=== PATIENT | male | born 1975 | race Caucasian/White ===

== ENCOUNTER 2018-07-20 13:39 | Emergency (ER) | payer BC ==
--- OUTSIDE RECORDS SUMMARY | 2018-07-20 13:44 | XMS REPORT ---
:1975 External Reference #:[id number] Author Organization [facility] Address [address] [place] [address] Phone [phone] Care Team Providers Name Role Phone Sara Davis M.D. 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 Primary Care Physician Unavailable Payers Type Date Identification Numbers Payment Provider Subscriber Health Maintenance Policy Number: Essential Plan Champ Dobson [facility] (O) [id number] [employer] Name: Essential Plan 2 [address] [address] PayID: [id number] CLINT Olivo [address] Problems Date Description Provider Status Onset: 07/02/2018 Obesity Sara Davis M.D. Active Family History Date Family Member(s) Problem(s) Comments Father Skin Cancer not melanoma - sun related on ears Father 80 Father Colon Polyps precancerous polyps at 65 Father Congestive Heart Failure (CHF) Father Atrial Fibrillation Father Benign Prostatic Hypertrophy : (age 74 Mother due to Cancer unknown metastatic, Years) possible lung Children 3 First Brother No Current Problems Social History Type Date Description Comments Marital Status . 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 Cigarette Use Former Cigarette Smoker age [age] - 2 packs a day ETOH Use Consumes 2 glasses of wine per cocktail and wine day Smoking Patient is a former smoker Exercise Type/Frequency Exercises sporadically work related General Hx Text [employer] Allergies, Adverse Reactions, Alerts Date Description Reaction Status Severity Comments 06/03/2013 Glucosamine Hives active Medications Medication Date Status Form Strength Qnty SIG Indications Ordering Provider No Active 06/03/2013 Active Unknown Medications Immunizations CPT Code Status Date Vaccine Lot # [id number] Given 09/27/2015 Tdap Tetanus, W Pertussis [id number] Given 06/09/2014 DO Not Use Split Influenza Virus Vaccine [id number] Given 06/03/2013 DO Not Use Split Influenza Virus Vaccine [id number] Vital Signs Date Vital Result Comment 07/02/2018 BP Systolic 128 mmHg BP Diastolic 86 mmHg Heart Rate 66 /min Body Temperature 97.9 F Respiratory Rate 18 /min Height 72 inches 6'0" Weight 287.00 lb BMI (Body Mass Index) 38.9 kg/m2 06/09/2014 BP Systolic 128 mmHg BP Diastolic 72 mmHg Heart Rate 60 /min Body Temperature 96.4 F Respiratory Rate 14 /min Height 75 inches 6'3" Weight 217.00 lb BMI (Body Mass Index) 27.1 kg/m2 11/10/2013 BP Systolic 130 mmHg BP Diastolic 82 mmHg Heart Rate 68 /min Body Temperature 97.1 F Respiratory Rate 16 /min Height 74.25 inches 6'2.25" Weight 230.00 lb BMI (Body Mass Index) 29.3 kg/m2 09/08/2013 BP Systolic 136 mmHg BP Diastolic 90 mmHg Heart Rate 64 /min Respiratory Rate 16 /min Height 74.25 inches 6'2.25" Weight 257.00 lb BMI (Body Mass Index) 32.8 kg/m2 07/08/2013 BP Systolic 140 mmHg BP Diastolic 90 mmHg Heart Rate 64 /min Body Temperature 97.6 F Respiratory Rate 16 /min Height 74.25 inches 6'2.25" Weight 288.00 lb BMI (Body Mass Index) 36.7 kg/m2 06/03/2013 BP Systolic 150 mmHg BP Diastolic 92 mmHg Heart Rate 68 /min Body Temperature 98.7 F Respiratory Rate 16 /min Height 74.25 inches 6'2.25" Weight 280.00 lb BMI (Body Mass Index) 35.7 kg/m2 Results Test Date Test Result H/L Range Note Comprehensive Metabolic Prof 06/09/2014 Sodium 134 mEq/L 134-149 Potassium 3.8 mEq/L 3.6-5.5 Chloride 95 mEq/L 94-112 Carbon Dioxide 28 mEq/L 21-32 Glucose 117 mg/dL High 70-105 BUN 18 mg/dL 6-26 Creatinine 0.6 mg/dL 0.6-1.4 BUN/Creat Ratio 30.0 CALC 8.0-36.0 Calcium 9.5 mg/dL 8.6-10.2 Total Protein 7.2 g/dL 6.4-8.3 Albumin 4.8 g/dL 3.8-5.5 Globulin 2.4 g/dL 2.0-4.8 A/G Ratio 2.0 CALC 0.6-2.3 Alk. Phosphatase 60 U/L 22-95 Alt (SGPT) 23 U/L 7-35 Ast (Sgot) 23 U/L 5-34 Total Bilirubin 1.1 mg/dL 0.2-1.3 Lipid Profile 06/09/2014 Cholesterol 188 mg/dL 120-200 Triglycerides 51 mg/dL 30-200 HDL Cholesterol 59 mg/dL 30-70 LDL (Calculated) 119 CALC 0-129 VLDL Cholesterol 10 mg/dL 0-50 HDL Risk Factor 3.2 CALC 0.0-4.4 Laboratory test finding 07/08/2013 Hemoglobin A1c 5.1 % 4.1-5.7 (a/[facility] [place],CX) Lipid Profile 06/10/2013 Cholesterol 209 mg/dL High 120-200 HDL 53 mg/dL 30-70 Triglycerides 132 mg/dL 30-200 HDL Risk Factor 3.9 CALC 0.0-4.4 LDL (Calculated) 130 CALC High 0-129 VLDL (Calculated) 26 mg/dL 0-50 Basic Metabolic Profile 06/10/2013 BUN 21 mg/dL 6-26 Calcium 9.6 mg/dL 8.6-10.2 Chloride 103 mEq/L 94-112 Creatinine 0.8 mg/dL 0.6-1.4 Carbon Dioxide 25 mEq/L 21-32 Glucose 116 mg/dL High 70-105 Sodium 140 mEq/L 134-149 Potassium 4.5 mEq/L 3.6-5.5 1 BUN/Creat Ratio 24.8 Calc 8.0-36.0 Ua - Non Micro ([facility]) 06/10/2013 Appearance clear Color yellow Glucose, Urine (a/CMC/CTX) neg Bilirubin neg Ketones neg SP Grav 1.025 Blood neg PH 5.5 Protein neg Urobil 0.2 Nitrite neg Leukocytes (a/CMC/Centrex) neg CBC Electronic ([facility]) 06/10/2013 WBC 6.5 3.6-9.6 RBC 4.62 3.90-5.70 Hemoglobin ([facility]/CMC/CTX) 15.2 g/dL 12.1 - 17.2 Hematocrit (a/CMC/CTX) 45.4 % 36.1 - 50.3 Platelets 282 10^3/ul 150-400 Lymph% 25.3 20.5-51.1 Mixed% 5.8 Neutrophils % 68.9 Mean Corpuscular Vol 98 High 82.2-97.4 Mean Corpuscular Hemoglobin 32.8 27.6-33.3 Mean Corpuscular Hemo Concen 33.4 32.0-36.0 RDW 11.8 11.6-13.7 Mean Platelet Volume 6.8 6.5-11.0 1 result elle'd Procedures Description No Information Encounters Type Date Location Provider CPT E/M Dx Office Visit 06/09/2014 8:00a [facility] Office Cliff Yin M.D. 43605 V70.0 V04.81 Office Visit 11/10/2013 9:10a [facility] Office Ruben Shepherd M.D. [id number] 796.2 790.21 278.02 Office Visit 09/08/2013 9:15a [facility] Office Ruben Shepherd M.D. 61241 796.2 Office Visit 07/08/2013 11:30a [facility] Office Ruben Shepherd M.D. 46987 796.2 790.21 Office Visit 06/03/2013 10:00a [facility] Office Ruben Shepherd M.D. 05398 V70.0 V77.91 796.2 v04.81 Plan of Care 07/02/2018 - Sara Davis M.D.Z01.818 Encounter for other preprocedural examinationNew Labs:Urine Culture & SensitivityPT And PTTComments:Cleared for surgery. Will fax note to ordering physician. HOLD NSAIDS and supplements 5 -7 days prior to surgery Pending labs, is cleared for surgery.Q53.9 Undescended testicle, yewpwqrjcopR55.9 Obesity, unspecifiedNew Labs:Comp Metabolic-ALL Lab CompaniLipid Panel-ALL Lab CompaniesHemoglobin A1c (Fma)CBC Electronic-ALL Lab CompaniTSH (Fma/CMC/[facility])Ua - Micro ([facility])Comments: Counseled on heart healthy diet such as Mediterranean diet. Eat protein and vegetables first then carbohydrates last. Get at least 150 minutes of moderate aerobic activity or 75 minutes of vigorous aerobic activity a week, or a combination of moderate and vigorous activity. General goal of 30 minutes of physical activity a day.Follow up:physicalAllComments:~B_~U_Medication Management~b_~u_ Patient Understands medications he's taking? Yes No Are there Barriers to Adherence? Yes No Has the patient been asked about herbal supplements and therapies, and OTC meds? Yes No
[2018-07-20 13:47] VITALS: BP 131/87
--- NOTE | 2018-07-20 14:25 | UC ---
Complaint Male HPI - HPI Summary HPI Summary: CC: pain, discharge from vasectomy site. Pain and swelling in the area of the left testicle is significant. The patient notes serous discharge from the facetectomy site. Also new swelling and pain superior and medial to the testicle. The patient states that this has become very tender over the last 3 days. MD: KELLY; 131/87; 97.4; hx of HTN; on no meds Nurse note: pt had a vasectomy 07/11 [place]. pt states the stitches have disolved and now he has clear pink/serous fluid from the incision site. pt started an abx on 07/17 augmentin and pt has had almost 4 days of this. pt states that the area is increased in pain and swelling. - History of Current Complaint Chief Complaint: UCGU Stated Complaint: PERSONAL Time Seen by Provider: 07/20/18 14:14 Hx Obtained From: Patient Onset/Duration: Gradual Onset Timing: Constant Severity Initially: Mild Severity Currently: Moderate Pain Intensity: 9 Location: Testicle - left Character: Constant Pressure Aggravating Factor(s): Straining, Palpation Alleviating Factor(s): Ice Associated Signs And Symptoms: Negative: Diaphoresis, Back Pain, Fever, Hematuria, Dysuria - Risk Factors Testicular Torsion: Recent Testicular Trauma - vasectomy 9 days ago - Allergies/Home Medications Allergies/Adverse Reactions: Allergies Allergy/AdvReac Type Severity Reaction Status Date / Time glucosamine Allergy Rash Verified 07/20/18 13:47 Home Medications: Home Medications Amoxicillin/Clavulanate TAB* [Augmentin TAB 500 mg*] 500 mg PO BID 07/20/18 [ History Confirmed 07/20/18] PMH/Surg Hx/FS Hx/Imm Hx - Surgical History Surgical History: Yes Surgery Procedure, Year, and Place: 2006 Herniated Disk C6-C7, vasectomy - Family History Known Family History: Positive: Diabetes Negative: Blood Disorder - Social History Alcohol Use: None Alcohol Amount: quit about 1 month ago Substance Use Type: None Smoking Status (MU): Never Smoked Tobacco - Immunization History Most Recent Influenza Vaccination: 2013 Most Recent Tetanus Shot: up to date Most Recent Pneumonia Vaccination: not received Review of Systems All Other Systems Reviewed And Are Negative: Yes Constitutional: Positive: Negative Skin: Positive: Negative Eyes: Positive: Negative ENT: Positive: Negative Respiratory: Positive: Negative Cardiovascular: Positive: Negative Gastrointestinal: Positive: Negative Genitourinary: Positive: Other - left testicle swelling, pain, serous discharge Motor: Positive: Negative Neurovascular: Positive: Negative Musculoskeletal: Positive: Negative Neurological: Positive: Negative Psychological: Positive: Negative Physical Exam - Summary Physical Exam Summary: Appearance: The patient is well-appearing, is in no pain or distress, and is well-nourished. Eyes: Conjunctiva are clear. Pupils are equal and reactive to light and accommodation. Extra ocular muscle movement is intact. ENT: The hearing is grossly normal, the pharynx is normal, and the TMs are normal. There is no muffled or hoarse voice. No stridor. Neck: The neck is supple and there is no lymphadenopathy. Respiratory: The chest is nontender to palpation and without crepitus. The lungs are clear, there are normal breath sounds, and there is no respiratory distress. No wheezes, rales or rhonchi. Cardiovascular: Heart sounds reveal a regular rate and rhythm. There are no clicks, rubs or murmurs. There are no carotid bruits or thrills. Circulation is grossly intact. Abdomen: The abdomen is soft and nontender. There is no organomegaly. Bowel sounds are present and within normal limits. No point tenderness at McBurneys point. Musculoskeletal: Strength is intact. The patient moves all extremities. Neurological: The patient is alert. Motor and sensory are examination grossly intact. Speech is normal. Psychological: The patient displays age appropriate behavior Skin: Negative for rashes. : The scrotum is obviously swollen and ecchymotic particularly on the left side. There is no inguinal adenopathy or obvious cellulitis. Examination of the right testicle reveals it to be nontender. There is a 1 cm incision that is closed and nontender superior to the right testicle. Examination of the left testicle shows it to be descended (he had a previous history of undescended left testicle), and a 2.5 linear, horizontal vasectomy incision site does not appear to be infected. There is some minimal serous fluid drainage. Just medial to the vasectomy site on the left side is a approximate 3 cm swelling that is tender to palpation. Triage Information Reviewed: Yes Vital Signs: Initial Vital Signs Temp 97.4 F 07/20/18 13:43 Pulse 68 07/20/18 13:43 Resp 18 07/20/18 13:43 BP 131/87 07/20/18 13:43 Pulse Ox 97 07/20/18 13:43 Complaint Male Course/Dx - Course Course Of Treatment: 43-year-old comes to the urgent care Center with a left testicular pain and swelling subsequent to a vasectomy, bilaterally, 9 days ago. 3 days ago the patient saw his urologist and was started on Augmentin. This was a preventative. Patient says that he had some pain at that time but since then the pain has significantly increased. There is obvious swelling and point tenderness in the left scrotum. I explained to the patient that this could be something simply related to the operation such as a hematoma but could also be an abscess. 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 I recommended that the patient go to the emergency department for further evaluation and treatment as needed. He said he would go to the ED now. Although his condition may simply be normal postoperative change, because of the complexity of the procedure that took roughly 60 minutes, and because of his current physical examination, further evaluation would be prudent to rule out a non-benign diagnoses. - Differential Dx/Diagnosis Differential Diagnosis/HQI/PQRI: Testicular Torsion, Trauma, Other - hematoma; abscess Provider Diagnosis: Testicle pain Discharge - Sign-Out/Discharge Documenting (check all that apply): Patient Departure All imaging exams completed and their final reports reviewed: No Studies - Discharge Plan Condition: Stable Disposition: HOME-RECOMMEND TO ED Patient Education Materials: Testicle Pain (ED) Referrals: No Primary Care Phys,NOPCP [Primary Care Provider] - Additional Instructions: WE DISCUSSED: PLEASE SEEK CARE AT THE EMERGENCY DEPARTMENT. YOUR DIAGNOSIS IS: left testicle pain; possible infection/abscess YOUR PRESCRIPTION RECOMMENDATION IS: continue Augmentin OTHER INSTRUCTIONS: Go to ED NOW. - Billing Disposition and Condition Condition: STABLE Disposition: Home-Recommend to ED
== END 2018-07-20 14:45 | disposition home health service (06) ==
LOC: UCEAST 13:39
DX: N50.812 Left testicular pain (principal); Z88.8 Allergy status to other drugs, medicaments and biological substances
CPT/HCPCS: 99212; G0463

== ENCOUNTER 2018-07-20 15:17 | Emergency (ER) | payer BC ==
--- NOTE | 2018-07-20 16:34 | ED ---
GI/ HPI - HPI Summary HPI Summary: This patient is a 43 year old male presenting to [facility] with a chief complaint of testicular pain since 1 week ago. Patient received a vasectomy 1 week ago. Since, patient was given an antibiotic during the recovery process. Patient states much of the swelling and bruising has decreased, but the pain still remains. Patient went to [facility] for the pain and was sent to the ED for concerns of abscess or hematoma. The pain is rated 8/10 in severity. Symptoms aggravated by nothing. Symptoms alleviated by nothing. Patient denies fever, chills - History of Current Complaint Chief Complaint: EDGeneral Time Seen by Provider: 07/20/18 16:18 Stated Complaint: TESTICULAR PAIN Hx Obtained From: Patient Onset/Duration: Started Days Ago, Still Present Timing: Constant Pain Intensity: 8 Location of Pain: Groin Additional Locations for Males: Scrotum Associated Signs and Symptoms: Positive: Negative - fever, chills Aggravating Factor(s): Nothing Alleviating Factor(s): Nothing - Allergy/Home Medications Allergies/Adverse Reactions: Allergies Allergy/AdvReac Type Severity Reaction Status Date / Time glucosamine Allergy Rash Verified 07/20/18 13:47 PMH/Surg Hx/FS Hx/Imm Hx Previously Healthy: Yes Endocrine/Hematology History: Denies: Hx Diabetes, Hx Thyroid Disease Cardiovascular History: Reports: Hx Hypertension Respiratory History: Denies: Hx Asthma, Hx Chronic Obstructive Pulmonary Disease (COPD) GI History: Denies: Hx Ulcer - Surgical History Surgery Procedure, Year, and Place: 2006 Herniated Disk C6-C7, vasectomy Infectious Disease History: No Infectious Disease History: Denies: Hx Clostridium Difficile, Hx Hepatitis, Hx Human Immunodeficiency Virus (HIV), Hx of Known/Suspected MRSA, Hx Shingles, Hx Tuberculosis, Hx Known/ Suspected VRE, Hx Known/Suspected VRSA, History Other Infectious Disease, Traveled Outside the [place] in Last 30 Days - Family History Known Family History: Positive: Diabetes Negative: Blood Disorder - Social History Alcohol Use: None Alcohol Amount: quit about 1 month ago Hx Substance Use: No Substance Use Type: Reports: None Hx Tobacco Use: No Smoking Status (MU): Never Smoked Tobacco Review of Systems Negative: Fever, Chills Genitourinary: Other - scrotal swelling and pain All Other Systems Reviewed And Are Negative: Yes Physical Exam - Summary Physical Exam Summary: Appearance: Well appearing, no pain distress Skin: warm, dry, reflects adequate perfusion Head/face: normal Eyes: EOMI, LOREN ENT: mucous membranes moist Neck: supple, non-tender Respiratory: CTA, breath sounds present Cardiovascular: RRR, pulses symmetrical Abdomen: non-tender, soft Bowel Sounds: present Pelvic: Bruising left hemiscrotum, Suprapubic area, Left side of penis bruising. Incision on the left is a little edematous. Mild drainage from incision site Musculoskeletal: normal, strength/ROM intact Neuro: normal, sensory motor intact, A&Ox3 Triage Information Reviewed: Yes Vital Signs On Initial Exam: Initial Vitals Temp Pulse Resp BP Pulse Ox 98.7 F 69 16 138/85 97 07/20/18 16:03 07/20/18 16:03 07/20/18 16:03 07/20/18 16:03 07/20/18 16:03 Vital Signs Reviewed: Yes Diagnostics - Vital Signs Vital Signs Temp Pulse Resp BP Pulse Ox 07/20/18 16:03 98.7 F 69 16 138/85 97 - Laboratory Lab Statement: Any lab studies that have been ordered have been reviewed, and results considered in the medical decision making process. - Additional Comments Diagnostic Additional Comments: US Testicular reveals, per radiologist, IMPRESSION: 1. SCROTAL EDEMA. 2. NO TESTICULAR PARENCHYMAL MASS. 3. NO SONOGRAPHIC FEATURES OF TORSION. PLEASE NOTE THAT PARTIAL OR INTERMITTENT TORSION MAY BE SONOGRAPHICALLY NORMAL. 4. NO LOCULATED FLUID COLLECTION TO SUGGEST HEMATOMA. ED physician has reviewed this radiology report. GIGU Course/Dx - Course Course Of Treatment: Nurse's notes reviewed. No evidence for abscess or hematoma. Edema seen in the area of discomfort. Assessment/Plan: Patient will be discharged with a dx of post-operative pain, scrotal edema. Patient is advised to follow up with PCP in 3 days. The patient is agreeable with this plan. - Diagnoses Differential Diagnoses - Male: Other - Scrotal hematoma versus abscess versus edema Provider Diagnoses: Post-operative pain, Scrotal edema Discharge - Sign-Out/Discharge Documenting (check all that apply): Patient Departure - Discharge Plan Condition: Improved Disposition: HOME Prescriptions: Hydrocodone/Acetaminophen [Moca 5-325 Tablet] 1 each PO TID PRN #9 tablet MDD 3 PRN Reason: more severe pain Patient Education Materials: Scrotal Pain (ED) Referrals: Neno Harrell MD [Medical Doctor] - Additional Instructions: Warm compresses to the area, massage may help. Continue antibiotic. Follow-up with Dr. Harrell as scheduled. Return if worse, fever, drainage of pus, new symptoms or other concerns. - Billing Disposition and Condition Condition: IMPROVED Disposition: Home - Attestation Statements Document Initiated by Joanie: Yes Documenting Scribe: Alejandro Woods Provider For Whom Dele is Documenting (Include Credential): Freddie Wade MD Scribe Attestation: Alejandro Mckinley, scribed for Freddie Wade MD on 07/20/18 at 1720. Scribe Documentation Reviewed: Yes Provider Attestation: The documentation as recorded by the Alejandro guardado accurately reflects the service I personally performed and the decisions made by , Freddie Wade MD Status of Scribe Document: Viewed
[2018-07-20 16:39] VITALS: BP 129/74
== END 2018-07-20 16:48 | disposition home or self-care (01) ==
LOC: ED 15:17
DX: J18.9 Pneumonia, unspecified organism (principal)
CPT/HCPCS: 76870; 99283